=== PATIENT | female | born 1965 | race Caucasian/White ===

== ENCOUNTER → 2021-09-06 | Outpatient (CLI) | payer BC ==
--- NOTE | 2021-09-06 13:36 | RAD ---
EXAM: Bilateral knees, 3 views. HISTORY: Pain. COMPARISON: None. FINDINGS: 3 views of both knees are obtained. There is severe left greater than right medial compartm ent joint space narrowing, subchondral sclerosis and spurring. There is moderate bilateral lateral an d patellofemoral compartment joint space narrowing and spurring. There is slight lateral subluxation of the right patella on right lateral patellar tilting and narrowing of the right lateral patellofemo ral joint space. There is no fracture, dislocation or subluxation. There is no joint effusion. IMPRESSION: Severe medial compartment predominant osteoarthritis of both knees with mild bilateral ge nu varus. No acute osseous finding. Electronically signed by: Pat Carcamo MD (09/06/2021 1:34 PM) [id number]
== END ==
LOC: RAD 13:11
PROVIDERS: ATTEND Orthopaedic Surgery
DX: M17.0 Bilateral primary osteoarthritis of knee (principal); M21.162 Varus deformity, not elsewhere classified, left knee; M21.161 Varus deformity, not elsewhere classified, right knee; X58.XXXA Exposure to other specified factors, initial encounter; S83.011A Lateral subluxation of right patella, initial encounter; M76.892 Other specified enthesopathies of left lower limb, excluding foot; M76.891 Other specified enthesopathies of right lower limb, excluding foot; Y93.89 Activity, other specified; Y92.89 Other specified places as the place of occurrence of the external cause; Y99.8 Other external cause status
CPT/HCPCS: 73565; 73560-50

== ENCOUNTER → 2021-09-29 | Outpatient (CLI) | payer BC ==
--- NOTE | 2021-09-29 12:37 | RAD ---
INDICATION : Routine Screening. COMPARISON: September 2015 TECHNIQUE: Standard mammogram screening views of the bilateral breasts were obtained with 3D tomosynt hesis. CAD was utilized. FINDINGS: The breasts are scattered density. No definite suspicious mass. IMPRESSION: BI-RADS Category 1: Negative. The patient was placed into the recall system with a suggested recall date for follow up imaging. Mammography is the most sensitive method for finding small breast cancers, but it does not detect the m all and is not a substitute for careful clinical examination. A negative mammogram does not negate a clinically suspicious finding and should not result in delay in biopsying a clinically suspicious abnormality. Electronically signed by: Jerald Yanes MD (09/29/2021 12:34 PM) [id number]
== END ==
LOC: MAMMO 09:27
PROVIDERS: ATTEND Family Medicine
DX: Z12.31 Encounter for screening mammogram for malignant neoplasm of breast (principal)
CPT/HCPCS: 77063; 77067